=== PATIENT | male | born 1990 | race Caucasian/White ===

== ENCOUNTER 2016-06-22 20:37 | Emergency (ER) | payer SELFPAY ==
[~2016-06-22] VITALS: Ht 190.5 cm; Wt 99.8 kg
[2016-06-22] MEDS ORDERED: KETOROLAC 60 MG/2 ML VIAL (J1885) IM ONE (23:30)
[2016-06-22] MEDS ORDERED: NAPR500T PO (23:31)
[2016-06-22 23:45] VITALS: BP 129/81
--- NOTE | 2016-06-23 03:30 | REP ---
Clinical: Trauma. Technique: AP, lateral, bilateral oblique views left wrist . Findings: The carpal bones, surrounding osseous structures, soft tissues, and joint spaces are normal. There is no evidence for acute fracture or dislocation. No subcutaneous emphysema or radiodense foreign body. Impression: No acute fracture or dislocation Signed by Familia Hinojosa MD 06/23/2016 03:21 A
== END 2016-06-22 23:47 | disposition home or self-care (01) ==
LOC: M ED 22:26
DX: S50.12XA Contusion of left forearm, initial encounter (principal); S60.212A Contusion of left wrist, initial encounter; V86.09XA Driver of other special all-terrain or other off-road motor vehicle injured in traffic accident, initial encounter; Y92.018 Other place in single-family (private) house as the place of occurrence of the external cause; Y93.89 Activity, other specified; Y99.8 Other external cause status; Z88.0 Allergy status to penicillin; F17.210 Nicotine dependence, cigarettes, uncomplicated
CPT/HCPCS: 73110; 96372; 99282; J1885

== ENCOUNTER → 2017-04-08 | Outpatient (REF) | payer OTHER | LOC: M LAB REF 15:16 | DX: J11.1 Influenza due to unidentified influenza virus with other respiratory manifestations (principal) ==

== ENCOUNTER 2017-07-21 23:01 | Emergency (ER) | payer OTHER | END 2017-07-22 01:46 | disposition left against medical advice (07) | LOC: M ED 23:01 | DX: Z53.21 Procedure and treatment not carried out due to patient leaving prior to being seen by health care provider (principal) ==

== ENCOUNTER 2017-08-28 14:45 | Emergency (ER) | payer OTHER ==
[2017-08-28] MEDS: KETOROLAC TROMETHAMINE 10 MG TAB PO (18:00)
== END 2017-08-28 18:08 | disposition home or self-care (01) ==
LOC: M ED 14:45
DX: M54.5 Low back pain (principal); G89.29 Other chronic pain; Z88.0 Allergy status to penicillin; F17.210 Nicotine dependence, cigarettes, uncomplicated
CPT/HCPCS: 99283

== ENCOUNTER 2019-02-11 10:33 | Emergency (ER) | payer OTHER, SELFPAY ==
[~2019-02-11 10:33] MED LIST: BACL10TA2 PO; HYDR-3715 PO; NAPR-837 PO
[2019-02-11 10:45] VITALS: BP 144/97
[2019-02-11] MEDS ORDERED: LIDOCAINE 5% (LIDODERM) PATCH TD ONE (11:30)
[2019-02-11] MEDS ORDERED: diazePAM 5 MG TAB PO ONE (11:30)
[2019-02-11] MEDS ORDERED: KETOROLAC 30 MG/ML VIAL (J1885) IM ONE (11:30)
[2019-02-11] MEDS ORDERED: **NOTE PATIENT COMMENT** MISC XX SCH (21:00)
== END 2019-02-11 12:25 | disposition left against medical advice (07) ==
LOC: M ED 10:33
DX: M54.42 Lumbago with sciatica, left side (principal); Z88.0 Allergy status to penicillin; F17.210 Nicotine dependence, cigarettes, uncomplicated
CPT/HCPCS: 96372; 99282; J1885